=== PATIENT | male | born 1965 | race Caucasian/White ===

== ENCOUNTER 2018-02-27 09:33 | Inpatient (IN) | payer SELFPAY ==
[~2018-02-27] VITALS: Ht 175.3 cm; Wt 88.6 kg
[2018-02-27] VITALS (298 sets, daily range): BP systolic 99–165; BP diastolic 70–118; PULSE 68–96; TEMP 97.7–98.6; O2SAT 90–99
[2018-02-27 09:52] LABS: BASO # 0.1 (0.0-0.2); BASO % 0.5 % (0.0-2.0); EOS # 0.2 (0.0-0.7); EOS % 1.1 % (0-4.0); GRAN # 15.3 (1.4-6.5); GRAN % 77.9 % (42.2-75.2); HEMATOCRIT 48.7 % (42.0-52.0); HEMOGLOBIN 16.7 g/dl (13.5-18.0); LYMPH # 2.6 (1.2-3.4); MEAN CELL VOLUME 87 fl (80.0-100.0); MEAN CORPUSCULAR HEMOGLOBIN 30 pg (27.0-31.0); MEAN CORPUSCULAR HGB CONC 34 g/dl (33.0-37.0); MEAN PLATELET VOLUME 8.6 fl (7.4-10.4); MONO # 1.3 (0.1-0.6); MONO % 6.7 % (1.7-9.3); PLATELET COUNT 289 K/mm3 (130-400); RED BLOOD COUNT 5.63 M/mm3 (4.20-5.60)
[2018-02-27 09:58] LABS: INR 0.9 (0.8-3.0); PROTHROMBIN TIME 10.7 SECONDS (9.7-12.8)
[2018-02-27 10:01] LABS: PARTIAL THROMBOPLASTIN TIME 33.9 SECONDS (26.0-37.0)
[2018-02-27 10:09] LABS: ALBUMIN 4.8 gm/dL (3.5-5.0); BILIRUBIN,TOTAL 0.7 mg/dL (0.0-1.0); CALCIUM 10.2 mg/dL (8.4-10.2); CREATININE, serum 0.72 mg/dL (0.66-1.25); POTASSIUM 3.8 mmol/L (3.4-5.0); TOTAL PROTEIN 8.1 gm/dL (6.4-8.2)
[2018-02-27 10:39] LABS: TROPONIN-I 15.9 ng/mL (0.000-0.034)
--- NOTE | 2018-02-27 11:46 | NUR ---
ALL MEDS GIVEN VIA VERBAL WITH READBACK FROM DR. CHOCO GARCIA FOR ADMIN TIMES. SVETA TEST POSITIVE.
--- NOTE | 2018-02-27 14:45 | NUR ---
Pt arrived with MARIELA Burden and BITA Villalta. Pt resting with eyes closed and no facial grimmace at time of arrival. Pt stating 8/10 chest pain. VSS. R radial site has existing hematoma from intra-procedure complications - site is stable. Pt educated on importance of remaining flat with head and leg flat - instructed on how to use call light and reinforced for pt not to attempt to get out of bed or perform any task that could potentially cause bleeding from the femoral artery access site. Call light and phone within reach. Spoue in waiting room waiting for MD Chelo to update
--- NOTE | 2018-02-27 19:20 | NUR ---
Bedside report recieved from MARIELA Martin. Patient sitting at bedside eating dinner with and daughter present. Right radial cath site CDI with TR in place but no air in cuff. Right femoral cath site CDI. Patient denies pain or needs at this time. 1/2NS infusing at ordered rate with Nitro gtt y-sited and running at 10mcg/min or 6ml/hr as ordered. Care assumed at this time.
--- NOTE | 2018-02-27 22:57 | NUR ---
Patient sleeps between disturbances. Cath sites x2 remain free of complication.
[2018-02-28] VITALS (88 sets, daily range): BP systolic 96–107; BP diastolic 62–73; PULSE 89–99; TEMP 98.3–98.6; O2SAT 89–93
--- NOTE | 2018-02-28 04:09 | NUR ---
Patient sleeps between disturbances. Cath sites x2 without complication. Patient provided fresh ice water per request. Care ongoing.
[2018-02-28 04:59] LABS: BASO # 0.1 (0.0-0.2); BASO % 0.3 % (0.0-2.0); EOS # 0.1 (0.0-0.7); EOS % 0.7 % (0-4.0); GRAN # 11.6 (1.4-6.5); GRAN % 78.9 % (42.2-75.2); HEMATOCRIT 37.2 % (42.0-52.0); LYMPH # 1.6 (1.2-3.4); LYMPH % 11.1 % (20.0-51.0); MEAN CELL VOLUME 88 fl (80.0-100.0); MEAN CORPUSCULAR HEMOGLOBIN 30 pg (27.0-31.0); MEAN CORPUSCULAR HGB CONC 34 g/dl (33.0-37.0); MEAN PLATELET VOLUME 8.9 fl (7.4-10.4); MONO # 1.2 (0.1-0.6); MONO % 7.9 % (1.7-9.3); PLATELET COUNT 247 K/mm3 (130-400); RED BLOOD COUNT 4.21 M/mm3 (4.20-5.60)
[2018-02-28 05:13] LABS: CALCIUM 8.7 mg/dL (8.4-10.2); CHOLESTEROL RISK RATIO 4.4; CREATININE, serum 0.88 mg/dL (0.66-1.25); POTASSIUM 3.7 mmol/L (3.4-5.0)
[2018-02-28 05:42] LABS: HEMOGLOBIN 12.5 g/dl (13.5-18.0)
--- NOTE | 2018-02-28 05:58 | NUR ---
ABIGAIL Sanchez notified of AM labs. VORB for redraw. Patient cath sites x2 CDI and soft. Patient denies pain or SOB. Reports discomfort to existing inguinal hernia with coughing. Lab called for redraw.
[2018-02-28 06:48] LABS: BASO # 0.1 (0.0-0.2); BASO % 0.4 % (0.0-2.0); EOS # 0.1 (0.0-0.7); EOS % 0.6 % (0-4.0); GRAN # 13.4 (1.4-6.5); GRAN % 78.9 % (42.2-75.2); HEMATOCRIT 37.8 % (42.0-52.0); HEMOGLOBIN 13.1 g/dl (13.5-18.0); LYMPH % 11.7 % (20.0-51.0); MEAN CELL VOLUME 86 fl (80.0-100.0); MEAN CORPUSCULAR HEMOGLOBIN 30 pg (27.0-31.0); MEAN CORPUSCULAR HGB CONC 35 g/dl (33.0-37.0); MEAN PLATELET VOLUME 8.9 fl (7.4-10.4); MONO # 1.3 (0.1-0.6); MONO % 7.4 % (1.7-9.3); PLATELET COUNT 244 K/mm3 (130-400); RED BLOOD COUNT 4.39 M/mm3 (4.20-5.60); REDCELL DISTRIBUTION WIDTH-CV 14.9 % (11.5-14.5)
[2018-02-28 06:53] LABS: CALCIUM 8.9 mg/dL (8.4-10.2); CREATININE, serum 0.88 mg/dL (0.66-1.25)
--- NOTE | 2018-02-28 07:25 | NUR ---
Bedside report provided to MARIELA Martin. Patient participates and denies needs at this time. Care transferred.
--- NOTE | 2018-02-28 08:01 | NUR ---
Pt AAOx3 sitting up in bed eating breakfast at this time. No complaints of pain. Re-educated on importance of activity guidelines on Right radial site and right groin site (no pushing up in bed using right wrist, no straining during bowel movements). Call light and cell phone within reach. Reported that pt did not urinate last night, will monitor. MD Chelo aware of hemoglobin drop and repeat lab draw.
[2018-02-28 09:22] LABS: COLLECTION METHOD CATHETER
[2018-02-28 09:35] LABS: MUCOUS Present /lpf; PH 5 (5-8); SQUAMOUS EPITHELIAL None Seen /hpf; URINE APPEARANCE Clear; URINE BACTERIA Rare /hpf; URINE BILIRUBIN Negative (NEGATIVE); URINE BLOOD Negative (NEGATIVE); URINE COLOR Yellow; URINE GLUCOSE Negative (NEGATIVE); URINE KETONE Trace (NEGATIVE); URINE LEUKOCYTE ESTERASE Negative (NEGATIVE); URINE NITRATE Negative (NEGATIVE); URINE PROTEIN(semi-quant) 1+ (NEGATIVE); URINE UROBILINOGEN Negative (NEGATIVE)
--- NOTE | 2018-02-28 10:31 | NUR ---
First visit from the ham facer. No needs right now.
[2018-02-28] MEDS ORDERED: NICODERM C21 MG/PATC TD (10:51)
[2018-02-28] MEDS ORDERED: BRILINTA90 MG PO (10:54)
[2018-02-28] MEDS ORDERED: LIPITOR 40MG TA40 MG PO (10:55)
[2018-02-28] MEDS ORDERED: TOPROL XL 25MG25 MG PO (10:55)
[2018-02-28] MEDS ORDERED: NITROSTAT0.4 MG/TAB SL (10:55)
[2018-02-28] MEDS ORDERED: VASOTEC 5MG5 MG/TAB PO (10:56)
[2018-02-28] MEDS ORDERED: ASPIRIN E.C. 8181 MG PO (10:56)
--- NOTE | 2018-02-28 11:54 | NUR ---
SW attended clinial rounds. The hospitalist dicussed getting the patient set up with a PCP. The patient states that he is agreeable to being set up with one at the [facility]. The patient lives alone in [place]. He states that he has a girlfriend, Franchesca, that stays with him occasionally and will help him out financially. He reports independence with ADLs and does not use any DME. The patient receives his medications at the [facility]. He reports difficulties obtaining his meds. SW provided the patient with a resource packet for [facility] and discussed [place]. The patient is self pay. Financial counseling had been notified and a Financial Assistance application was provided to the patient. The patient was prescribed Brilinta and the patient reports that he would not be able to afford that medication. The pharmacist, Celeste, is to discuss switching the Brilinta to Plavix with the generator mechanic. SW to continue to follow.
[2018-02-28] MEDS ORDERED: PLAVIX 75MG TAB75 MG PO (13:03)
--- NOTE | 2018-02-28 14:32 | NUR ---
JAS followed up with the patient about a PCP. The patient reports that due to not having insurance, he would prefer a clinic now that has a sliding scale fee. JAS discussed the [facility] and the [facility]. The patient was agreeable to [facility]. JAS contacted [facility] and a follow up appointment was made for 03/08 at 1400. The patient needs to arrive at 1300 and provide his proof of income and ID. JAS informed the patient and he is agreeable to this appointment. JAS also informed the patient's nurse, Mario, and the appointment was added to his discharge orders. The patient was also switched to Plavix. The patient had no other questions or concerns. The patient is to discharge back home today, 02/28. No additional needs at this time.
--- NOTE | 2018-02-28 14:52 | NUR ---
Shot Hole Shooter Nayana acquired a primary care doctors appointment for pt. Pt transported via wheelchair to private vehicle
== END 2018-02-28 14:50 | disposition home or self-care (01) | DRG 246 ==
LOC: COL.ER 09:33 → ICU 11:23
PROVIDERS: Family Medicine; Nurse Practitioner; Physician Assistant
PROC: 027137Z Dilation of Coronary Artery, Two Arteries with Four or More Drug-eluting Intraluminal Devices, Percutaneous Approach (ICD-10-PCS; principal; 2018-02-27)
PROC: B2111ZZ Fluoroscopy of Multiple Coronary Arteries using Low Osmolar Contrast (ICD-10-PCS; 2018-02-27)
DX: I21.4 Non-ST elevation (NSTEMI) myocardial infarction (principal); I10 Essential (primary) hypertension; F17.210 Nicotine dependence, cigarettes, uncomplicated; F10.10 Alcohol abuse, uncomplicated; Z91.14 Patient's other noncompliance with medication regimen; I25.10 Atherosclerotic heart disease of native coronary artery without angina pectoris
CPT/HCPCS: 99223-AI; 99239; C1725; C1760; C1769; C1874; C1887; C1894; C9600; J0583; J0690; J1200; J1644; J2175; J2250; J2405; J3010; J7030; Q9967